=== PATIENT | female | born 1935 | race Caucasian/White ===

== ENCOUNTER 2020-04-06 10:02 | Inpatient (IN) | payer MEDICARE, BC ==
[2020-04-06 11:15] LABS: #Lymphocytes 0.7 thou/uL (1.20-3.40); #Monocytes 0.5 thou/uL (0.11-0.59); #Neutrophils 6.7 thou/uL (1.40-6.50); %Basophils 0.1 % (0.0-1.0); %Eosinophils 0.1 % (0.0-10.0); %Lymphocytes 8.7 % (21.0-51.0); %Monocytes 6.7 % (0.0-10.0); %Neutrophils 84.4 % (42.0-75.0); Hemoglobin 13.3 g/dL (12.0-16.0); Mean Corpuscular HGB CONC 32.1 g/dL (32.0-36.0); Mean Corpuscular Hemoglobin 30.6 pg (27.0-31.0); Mean Corpuscular Volume 95.4 fL (78.0-98.0); Mean Platelet Volume 8.6 fL (7.4-10.4); Platelet Count 175 thou/uL (130-400); RBC Distribution Width 11.8 % (11.5-14.5); Red Blood Cell (RBC) Count 4.36 mill/uL (4.20-5.40)
--- NOTE | 2020-04-06 11:20 | RAD ---
Chest AP view INDICATION: Covid positive diagnosis COMPARISON: None FINDINGS: Lungs: There are patchy interstitial airspace opacities within the right lower lobe which may be rel ated to subsegmental volume loss as the patient did take a poor inspiration Cardiac silhouette: Accentuated by the low inspiration. Pulmonary vasculature: Normal Pleural spaces: No pleural effusion or pneumothorax is demonstrated. Upper abdomen: No abnormality seen. Osseous structures: No acute osseous abnormality. Additional findings: None. IMPRESSION: Suspected subsegmental volume loss within the right lower lobe due to poor inspiration. Recommend a r epeat chest radiograph with improved inspiration for further evaluation.
[2020-04-06 11:25] LABS: ALT (SGPT) 23 U/L (8-55); AST (SGOT) 50 U/L (5-34); Albumin 3.8 g/dL (3.4-4.8); Alkaline Phosphatase 66 U/L (40-110); Anion Gap 19 mmol/L (10-20); BUN (Urea Nitrogen) 34 mg/dL (9.8-20.1); Bilirubin, Total 0.7 mg/dL (0.2-1.2); Calc. Creatinine Clearance 0 mL/min (70-130); Calcium 8.5 mg/dL (7.8-10.44); Carbon Dioxide 23 mmol/L (23-31); Chloride 107 mmol/L (98-107); Globulin 2.9 g/dL (2.4-3.5); Glucose 135 mg/dL (83-110); Protein, Total 6.7 g/dL (6.0-8.3); Sodium 145 mmol/L (136-145)
[2020-04-06 11:52] LABS: Bilirubin Small (Negative); Blood, Urine Trace (Negative); Clarity Cloudy (Clear); Glucose, Urine (Dipstick) Negative (Negative); Ketone, Urine Negative (Negative); Leukocyte Moderate (Negative); Nitrite Negative (Negative); Protein, Urine (Dipstick) 30 mg/dL (Neg-Trace)
[2020-04-06 12:09] LABS: Specific Gravity, Urine 1.026 (1.002-1.036)
[2020-04-06 12:10] LABS: Bacteria/HPF 1+ HPF (None Seen); Mucous/LPF 1+ LPF (<2+); RBC/HPF 0-3 HPF (0-3); WBC/HPF Greater Than 50 HPF (0-3)
[2020-04-06] MEDS ORDERED: cefTRIAXone\\ROCEPHIN 2 GM VIAL ONE (12:34)
[2020-04-06] MEDS ORDERED: Ondansetron PF 4 MG/2 ML Vial IVP PRN (13:15)
--- NOTE | 2020-04-06 14:25 | HP ---
PRIMARY CARE PHYSICIAN: Dr. Mónica Martinez at [facility]. CHIEF COMPLAINT: Not responsive. HISTORY OF PRESENT ILLNESS: This is an 84-year-old female with history of dementia in a Memory Care Unit, who tested positive for COVID at that facility 5 days ago, who presents to the emergency room here due to lack of responsiveness. History is primarily obtained from the patient's son. He reports visiting her a week ago and states that she stayed in bed the entire time which was unusual. The following day, he was told she tested positive and he was unable to go into the room. He has visited her daily looking through the window and could see that she is becoming more frail, not eating, shaking. Yesterday, the nursing staff pointed out that her mouth was red and that she was dehydrated. Because of the worsening, she was brought to the emergency room. No other history is obtainable, the patient does mumble some words, however, they are not comprehensible. In the emergency room, the patient diagnosed with UTI and given 2 g of Rocephin and 1 L of normal saline. She was placed on precautions because of the reported positive COVID test. ALLERGIES TO MEDICINE: Azithromycin and erythromycin. CURRENT MEDICATIONS: Reconciled with the list by the nursing facility. 1. Famotidine 20 mg b.i.d. p.r.n. 2. Delsym 10 mL b.i.d. 3. Donepezil 5 mg at bedtime. 4. Escitalopram 20 mg daily. 5. Fluocinolone 0.05% every 6 hours as needed. 6. Lamisil topical in the evening to her toenails. 7. MiraLAX 17 g daily as needed. 8. Tylenol 650 mg every 6 hours as needed. PAST MEDICAL HISTORY: Per the patient's son, dementia, diagnosed about a year ago. PAST SURGICAL HISTORY: He denies anything recent. SOCIAL HISTORY: The patient lived with him up until a year ago when she started having signs of dementia, which he reports has progressed. She lives in a Memory Care Facility and was transitioned to an isolation care area within that facility at [place]. The patient's son is her surrogate decision maker. In discussion with the son and his , they state that she does have a living will and she would not want to be kept alive if there was no chance for quality of life. However, there is no mention of immediate actions. We will have the patient as a full code, and with any decision making, it will need to be discussed with the son and [id number] to determine if it is fitting with the patient's wishes. FAMILY HISTORY: Significant for one of the patient's sons who of muscular dystrophy at age 45. REVIEW OF SYSTEMS: Not obtainable. PHYSICAL EXAMINATION: VITAL SIGNS: Blood pressure 110/69, pulse 77, respirations 24, sat 96% on room air, temperature 99.7. GENERAL: The patient will open her eyes. She will mumble. She is not in apparent distress. HEENT: Her pupils are equal and round. No scleral icterus. Oral mucosa is dry with yellow material around her teeth and on her tongue. NECK: Supple, nontender. LYMPHATICS: No palpable cervical or supraclavicular lymphadenopathy. LUNGS: Clear to auscultation. No audible wheezing, rhonchi, or rales. HEART: Normal S1, S2. No significant murmurs, although difficult to determine given the COVID unit negative pressure system in the room. ABDOMEN: Soft. Present bowel sounds. Nontender, nondistended. EXTREMITIES: No pitting edema, clubbing, or cyanosis. NEUROLOGIC: Not following commands. Unable to adequately assess. PSYCH: Unable to adequately assess. SKIN: She has some flaking on her lower extremities bilateral. No erythema. VASCULAR: She has 2+ radial pulses. LABORATORY AND DIAGNOSTIC DATA: Chest x-ray is personally reviewed, which shows a suspected subsegmental volume loss within the right lower lobe due to poor inspiration, recommends repeating the chest x-ray when the patient can take a deeper breath. CBC; 8, 13.3, 41.5, 175. Chemistry; 145, 4.0, 107, 23, 34, 1.03, 135. T-bilirubin 0.7, AST 50, ALT 23, alkaline phosphatase 66, total protein 6.7, albumin 3.8. Lactic acid 1.3. Troponin 0.016. Urine; present protein, moderate leukocyte esterase, greater than 50 white blood cells, 4 to 6 squamous cells, and 4 to 6 transitional epithelial cells. IMPRESSION: 1. Reported COVID positive test a week ago, no documentation available to confirm this. 2. Encephalopathy in the context of urinary tract infection in a patient with baseline dementia. 3. Dehydration, fairly significant. 4. Thrush. 5. Dementia. PLAN: 1. Admission to the hospital. 2. IV fluid hydration, continuing the Rocephin and following the urine culture as well as blood cultures. 3. Monitoring her urine output. 4. Repeating the COVID test as I do not see documentation and want to verify that this is accurate. We will have the patient on precautions until then. 5. Given the change in mental status, although it may solely be due to either COVID or urinary tract infection, we will order a CT scan of the brain to ensure that there is no other process going. 6. We will use nystatin oral solution to help with the patient's mouth. She will be n.p.o. until she is considered safe to swallow via bedside swallow. 7. No indication for medications for COVID given that the patient is on room air without any significant sign of pneumonia on chest x-ray. 8. DVT prophylaxis with renally dosed Lovenox. 9. GI prophylaxis. We will use IV famotidine for now until the patient is able to take p.o. 10. Code status is full. However, the caveat is there are things that the patient may not want and recommend any procedures be discussed with the patient's son and [id number]. However, in the event of an emergency, they do consent to treatment. 11. Discussed that this situation is very difficult for the patient with the underlying dementia, the hope is with treatment that this will improve and the patient will get back to her baseline. We also discussed the possibility that this may stay the same or worsen. There were no questions or further needs at end of conversation with the patient's son and [id number]. They demonstrate understanding of the potentially serious nature of the current illness as well as the planned treatment. Job ID: [id number] [facility]
--- NOTE | 2020-04-06 14:51 | CT ---
HEAD CT WITHOUT CONTRAST: History: Mental status change. FINDINGS: No parenchymal hemorrhage. No extraaxial hematoma. No midline shift. Basilar cisterns are patent. Brain volume is age appropriate. Cortical kaplan white matter differentiation is preserved. There are chronic small vessel ischemic changes of the white matter. No hydrocephalus. 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 Intact calvarium. Adequate aeration of the sinuses and mastoid air cells. IMPRESSION: No acute intracranial process. POS: PPP
--- NOTE | 2020-04-06 15:18 | PDOC.BPN ---
- Brief Progress Note Encounter Date: 04/06/20 Encounter Time: 15:17 Rupa/RN talked with the family since I spoke with them - they called back and stated pt is a DNAR. They do not desire resuscitation if there is a decline in condition. I updated this in the system.
[2020-04-06] MEDS ORDERED: Haloperidol Lactate 5 MG/ML VIAL ONE (15:58)
[2020-04-06] MEDS ORDERED: Acetaminophen 650 MG Suppository ONE (16:00)
[2020-04-06 17:56] VITALS: BMI 22.5
[2020-04-06] MEDS: Sodium Chloride 0.9% 1,000 ML IV SCH (18:17)
[2020-04-06] MEDS: Nystatin 500,000 UNITS/5 ML UDCUP SSP SCH ×2 (18:17→22:16)
[2020-04-06] MEDS ORDERED: Famotidine/PF 20 mg/2ml Vial SLOW IVP SCH (21:00)
[2020-04-06 23:17] LABS: SARS-CoV-2 MS2 Positive; SARS-CoV-2 N Gene Positive; SARS-CoV-2 S Gene Positive; SARS-CoV-2 by NAA DETECTED (NotDetected); SARS-CoV-2 orf1ab Positive
[2020-04-07] MEDS: Sodium Chloride 0.9% 1,000 ML IV SCH ×2 (01:33→08:31)
[2020-04-07 07:02] LABS: #Lymphocytes 0.6 thou/uL (1.20-3.40); #Monocytes 0.4 thou/uL (0.11-0.59); #Neutrophils 8.2 thou/uL (1.40-6.50); %Basophils 0.1 % (0.0-1.0); %Eosinophils 0.1 % (0.0-10.0); %Lymphocytes 6.3 % (21.0-51.0); %Monocytes 4.3 % (0.0-10.0); %Neutrophils 89.2 % (42.0-75.0); Hemoglobin 12.2 g/dL (12.0-16.0); Mean Corpuscular Volume 96.7 fL (78.0-98.0); Mean Platelet Volume 8.4 fL (7.4-10.4); Platelet Count 170 thou/uL (130-400); RBC Distribution Width 11.8 % (11.5-14.5); Red Blood Cell (RBC) Count 3.94 mill/uL (4.20-5.40); White Blood Cell (WBC) Count 9.2 thou/uL (4.8-10.8)
[2020-04-07 07:20] LABS: Anion Gap 14 mmol/L (10-20); BUN (Urea Nitrogen) 27 mg/dL (9.8-20.1); Calc. Creatinine Clearance 47 mL/min (70-130); Calcium 8.4 mg/dL (7.8-10.44); Carbon Dioxide 23 mmol/L (23-31); Chloride 113 mmol/L (98-107); Glucose 102 mg/dL (83-110); Potassium 3.8 mmol/L (3.5-5.1); Sodium 146 mmol/L (136-145)
[2020-04-07] MEDS: Nystatin 500,000 UNITS/5 ML UDCUP SSP SCH (08:28)
[2020-04-07] MEDS: Enoxaparin Sodium 30 MG/0.3 ML SYRINGE SC SCH (08:31)
--- NOTE | 2020-04-07 09:11 | PDOC.HOSPP ---
- Subjective Encounter Date: 04/07/20 (f/u encephalopathy) Encounter Time: 09:09 Subjective: Pt more alert this morning - recognizes her son's voice on the phone, able to answer a few simple question. Rn reports she is swallowing without difficulty. Voiding. No overnight events. - Objective Vital Signs & Weight: Vital Signs (12 hours) Temp Pulse Resp BP Pulse Ox 04/07/20 07:24 96 04/07/20 07:23 98.9 F 87 18 134/63 96 04/07/20 04:00 99.8 F H 84 18 112/67 94 L 04/07/20 01:00 98.5 F 80 18 133/79 96 Weight Weight 131 lb 4.8 oz Result Diagrams: 04/07/20 06:52 04/07/20 06:52 Additional Labs: Accuchecks 04/07/20 04/06/20 04/06/20 06:04 20:44 18:23 POC Glucose 86 122 H 112 H Hospitalist ROS - Medication Medications: Active Medications Generic Name Dose Route Start Last Admin Trade Name Freq PRN Reason Stop Dose Admin Enoxaparin Sodium 30 mg 04/07/20 09:00 04/07/20 08:31 Enoxaparin Sodium 30 Mg/0.3 Ml Syringe SC 30 mg 0900 KENTON Administration Famotidine 20 mg 04/06/20 21:00 04/06/20 22:16 Famotidine/Pf 20 Mg/2ml Vial SLOW IVP 20 mg HS KENTON Administration Nystatin 500,000 units 04/06/20 17:00 04/07/20 08:28 Nystatin 500,000 Units/5 Ml Udcup SSP 500,000 units QID K[place]ON Administration - Exam General Appearance: NAD Heart: RRR, no murmur Respiratory: CTAB, no wheezes, no rales, no ronchi Gastrointestinal: soft, non-tender, non-distended, normal bowel sounds Extremities: no cyanosis, no clubbing, no edema Psychiatric - other findings: says hello, more alert today. Hosp A/P (1) UTI (urinary tract infection) Status: Acute Qualifiers: Urinary tract infection type: acute cystitis Hematuria presence: without hematuria Qualified Code(s): N30.00 - Acute cystitis without hematuria (2) Encephalopathy Code(s): G93.40 - ENCEPHALOPATHY, UNSPECIFIED Status: Acute (3) Dementia Code(s): F03.90 - UNSPECIFIED DEMENTIA WITHOUT BEHAVIORAL DISTURBANCE Status: Chronic Qualifiers: Dementia type: unspecified type (4) COVID-19 Code(s): U07.1 - COVID-19 Status: Acute - Plan Pt overall improved in terms of mentation: 1. UTI - continue Rocephin and follow cultures 2. Encephalopathy - c/w toxic from UTI - treat infection - continue to re-orient - resume home meds - advance diet to regular - I ordered chopped for easier eating 3. Dementia - resume home med 4. COVID - no sx, no indication for meds - monitor 5. Mouth sores - nystatin swish and swallow pt/ot dvt prophy - lovenox gi prophy - not indicated code status DNAR Reviewed plan of care with patient's son who was on the phone while I was in the room. No questions or further needs at end of eval.
[2020-04-07] MEDS ORDERED: Polyethylene Glycol 3350 17 GM Packet PO PRN (09:51)
[2020-04-07] MEDS: Nystatin 500,000 UNITS/5 ML UDCUP SSW SCH ×4 (10:14→20:52)
[2020-04-07] MEDS: Dextrose 5 %-0.45 % NaCl 1,000 ML IV SCH (10:30)
[2020-04-07] MEDS: cefTRIAXone\\ROCEPHIN 1 GM in Sodium Chloride 0.9% 100 ML IVPB SCH (12:08)
[2020-04-07] MEDS ORDERED: FLU VACC QS2020-21(65YR UP)/PF 240 MCG/0.7 ML SYRINGE IM ONE (18:15)
[2020-04-07] MEDS: Famotidine 20 MG TAB PO SCH (20:52)
[2020-04-07] MEDS: Donepezil HCl 5 MG TAB PO SCH (20:52)
--- NOTE | 2020-04-07 23:50 | PDOC.EVN ---
Event Note - Event Note Event Note: Notified by RN, patient restless and attempting to get out of bed. Requesting restraints. Patient admitted with UTI and receiving antibiotics. Bladder scan ordered. Patient with >999mLs. [place] catheter placed given retention.
[2020-04-08 07:46] LABS: #Lymphocytes 0.9 thou/uL (1.20-3.40); #Monocytes 0.4 thou/uL (0.11-0.59); #Neutrophils 4.6 thou/uL (1.40-6.50); %Eosinophils 0.1 % (0.0-10.0); %Lymphocytes 15.2 % (21.0-51.0); %Monocytes 5.9 % (0.0-10.0); %Neutrophils 78.8 % (42.0-75.0); Hemoglobin 11.7 g/dL (12.0-16.0); Mean Corpuscular HGB CONC 33.9 g/dL (32.0-36.0); Mean Corpuscular Hemoglobin 32.6 pg (27.0-31.0); Mean Corpuscular Volume 96.3 fL (78.0-98.0); Mean Platelet Volume 8.9 fL (7.4-10.4); Platelet Count 147 thou/uL (130-400); RBC Distribution Width 11.7 % (11.5-14.5); White Blood Cell (WBC) Count 5.9 thou/uL (4.8-10.8)
[2020-04-08 07:53] LABS: Anion Gap 12 mmol/L (10-20); BUN (Urea Nitrogen) 20 mg/dL (9.8-20.1); Calc. Creatinine Clearance 51 mL/min (70-130); Calcium 8.2 mg/dL (7.8-10.44); Carbon Dioxide 22 mmol/L (23-31); Chloride 113 mmol/L (98-107); Glucose 102 mg/dL (83-110); Sodium 144 mmol/L (136-145)
[2020-04-08] MEDS ORDERED: Potassium Chloride 40 MEQ in Sodium Chloride 0.9% 250 ML 250 ML IVPB SCH (09:45)
[2020-04-08] MEDS: Dextrose 5 %-0.45 % NaCl 1,000 ML IV SCH (09:52)
[2020-04-08] MEDS: Escitalopram Oxalate 20 mg Tablet PO SCH (09:52)
[2020-04-08] MEDS: Nystatin 500,000 UNITS/5 ML UDCUP SSW SCH ×4 (09:52→20:12)
[2020-04-08] MEDS: Famotidine 20 MG TAB PO SCH ×2 (09:52→20:06)
[2020-04-08] MEDS: Azithromycin 500 MG in Sodium Chloride 0.9% 250 ML 250 ML IVPB SCH (09:52)
[2020-04-08] MEDS: Enoxaparin Sodium 30 MG/0.3 ML SYRINGE SC SCH (09:54)
[2020-04-08] MEDS ORDERED: Cholecalciferol 1,000 UNITS (25 MCG) TAB PO SCH (11:00)
[2020-04-08] MEDS ORDERED: Dexamethasone 4 mg/ml Vial SLOW IVP SCH (11:00)
[2020-04-08] MEDS ORDERED: Ascorbic Acid 500 mg Chewable Tablet PO SCH (11:00)
--- NOTE | 2020-04-08 13:58 | PDOC.HOSPP ---
- Subjective Encounter Date: 04/08/20 Encounter Time: 10:20 Subjective: Events noted. Patient still confused this morning talk to the RN. We can remove her soft restraints and if needed we can put it back. Still hypoxia but seems to be better 94% in the room air had a low-grade temp last evening - Objective Vital Signs & Weight: Vital Signs (12 hours) Temp Pulse Resp BP Pulse Ox 04/08/20 08:28 97.7 F 54 L 18 122/73 94 L 04/08/20 08:00 94 L Weight Admit Weight 131 lb 4.8 oz Weight 131 lb 4.8 oz I&O: 04/07/20 04/08/20 04/09/20 06:59 06:59 06:59 Intake Total 480 Balance 480 Result Diagrams: 04/08/20 06:57 04/08/20 06:57 Additional Labs: Accuchecks 04/08/20 04/07/20 04/07/20 05:34 20:34 17:04 POC Glucose 96 107 H 88 Hospitalist ROS - Medication Medications: Active Medications Generic Name Dose Route Start Last Admin Trade Name Freq PRN Reason Stop Dose Admin Donepezil HCl 5 mg 04/07/20 21:00 04/07/20 20:52 Donepezil Hcl 5 Mg Tab PO 5 mg HS K[place]ON Administration Enoxaparin Sodium 30 mg 04/07/20 09:00 04/08/20 09:54 Enoxaparin Sodium 30 Mg/0.3 Ml Syringe SC 30 mg 0900 K[place]ON Administration Escitalopram Oxalate 20 mg 04/08/20 09:00 04/08/20 09:52 Escitalopram Oxalate 20 Mg Tablet PO 20 mg DAILY [place] Administration Famotidine 20 mg 04/07/20 21:00 04/08/20 09:52 Famotidine 20 Mg Tab PO 20 mg BID K[place] Administration Ceftriaxone Sodium 1 gm/ 100 mls @ 200 mls/hr 04/07/20 13:00 04/07/20 12:08 Sodium Chloride IVPB 100 mls Q24HR K[place] Administration Dextrose/Sodium Chloride 1,000 mls @ 50 mls/hr 04/07/20 09:15 04/08/20 09:52 D5 1/2 Ns IV 1,000 mls .Q20H [place] Administration Azithromycin 500 mg/ Sodium 250 mls @ 250 mls/hr 04/08/20 10:00 04/08/20 09:52 Chloride IVPB 250 mls 1000 [place] Administration Nystatin 500,000 units 04/07/20 09:00 04/08/20 13:18 Nystatin 500,000 Units/5 Ml Udcup SSW 500,000 units QID [place] Administration - Exam General Appearance: NAD, awake alert Eye: PERRL ENT: normocephalic atraumatic Neck: supple Heart: RRR, normal peripheral pulses Respiratory: CTAB, normal chest expansion Gastrointestinal: soft, normal bowel sounds Neurological: cranial nerve grossly intact, no focal deficits Psychiatric: normal affect, normal behavior, A&O x 3 Hosp A/P - Plan UTI (urinary tract infection) -On ceftriaxone E. coli UTI - sensitive for the most antibiotics except Bactrim and Unasyn (2) Encephalopathy Code(s): G93.40 - ENCEPHALOPATHY, UNSPECIFIED Status: Acute (3) Dementia Code(s): F03.90 - UNSPECIFIED DEMENTIA WITHOUT BEHAVIORAL DISTURBANCE Status: Chronic Qualifiers: Dementia type: unspecified type (4) COVID-19 Code(s): U07.1 - COVID-19 Status: Acute 4. COVID - She is hypoxic in room air -Decadron may worsen her metabolic encephalopathy however with hypoxia will treat her empirically 5. Mouth sores - nystatin swish and swallow VIBHA CAMPBELL
[2020-04-08] MEDS: cefTRIAXone\\ROCEPHIN 1 GM in Sodium Chloride 0.9% 100 ML IVPB SCH (16:48)
[2020-04-08] MEDS: Donepezil HCl 5 MG TAB PO SCH (20:06)
[2020-04-08] MEDS: Acetaminophen 650 MG Suppository PR PRN (22:00)
[2020-04-09] MEDS: Dextrose 5 %-0.45 % NaCl 1,000 ML IV SCH ×2 (01:02→19:00)
[2020-04-09 08:48] LABS: #Lymphocytes 0.6 thou/uL (1.20-3.40); #Monocytes 0.4 thou/uL (0.11-0.59); #Neutrophils 3.3 thou/uL (1.40-6.50); %Basophils 0.2 % (0.0-1.0); %Eosinophils 0.1 % (0.0-10.0); %Neutrophils 77.8 % (42.0-75.0); Hemoglobin 12.3 g/dL (12.0-16.0); Mean Corpuscular HGB CONC 31.3 g/dL (32.0-36.0); Mean Corpuscular Hemoglobin 29.9 pg (27.0-31.0); Mean Corpuscular Volume 95.4 fL (78.0-98.0); Mean Platelet Volume 9.8 fL (7.4-10.4); Platelet Count 168 thou/uL (130-400); RBC Distribution Width 11.8 % (11.5-14.5); Red Blood Cell (RBC) Count 4.11 mill/uL (4.20-5.40); White Blood Cell (WBC) Count 4.2 thou/uL (4.8-10.8)
[2020-04-09 08:58] LABS: Anion Gap 17 mmol/L (10-20); BUN (Urea Nitrogen) 16 mg/dL (9.8-20.1); Calc. Creatinine Clearance 56 mL/min (70-130); Calcium 8.5 mg/dL (7.8-10.44); Carbon Dioxide 21 mmol/L (23-31); Chloride 112 mmol/L (98-107); Glucose 135 mg/dL (83-110); Potassium 4.8 mmol/L (3.5-5.1); Sodium 145 mmol/L (136-145)
[2020-04-09] MEDS: Famotidine 20 MG TAB PO SCH ×2 (09:17→21:03)
[2020-04-09] MEDS: Ascorbic Acid 500 mg Chewable Tablet PO SCH (09:17)
[2020-04-09] MEDS: Escitalopram Oxalate 20 mg Tablet PO SCH (09:18)
[2020-04-09] MEDS: Zinc Sulfate 220 MG CAP PO SCH (09:18)
[2020-04-09] MEDS: Cholecalciferol 1,000 UNITS (25 MCG) TAB PO SCH (09:18)
[2020-04-09] MEDS: Dexamethasone 4 mg/ml Vial SLOW IVP SCH (09:18)
[2020-04-09] MEDS: Enoxaparin Sodium 30 MG/0.3 ML SYRINGE SC SCH (09:18)
[2020-04-09] MEDS: Nystatin 500,000 UNITS/5 ML UDCUP SSW SCH ×4 (09:19→21:03)
[2020-04-09] MEDS: Azithromycin 500 MG in Sodium Chloride 0.9% 250 ML 250 ML IVPB SCH (09:20)
[2020-04-09] MEDS ORDERED: hydrALAZINE 20 MG/ML VIAL SLOW IVP PRN (09:45)
[2020-04-09] MEDS: Lorazepam 1 MG TAB PO PRN ×2 (12:10→21:04)
[2020-04-09] MEDS: cefTRIAXone\\ROCEPHIN 1 GM in Sodium Chloride 0.9% 100 ML IVPB SCH (12:10)
--- NOTE | 2020-04-09 12:34 | PDOC.HOSPP ---
- Subjective Encounter Date: 04/09/20 Encounter Time: 10:45 Subjective: Patient looks stable but she is very confused. May need intermittent sedation so that she does not harm herself. She is on soft restraints. - Objective Vital Signs & Weight: Vital Signs (12 hours) Temp Pulse Resp BP Pulse Ox 04/09/20 12:00 98 04/09/20 08:00 97.6 F 64 20 161/84 H 94 L 04/09/20 04:00 97.9 F 57 L 16 146/71 H 93 L Weight Admit Weight 131 lb 4.8 oz Weight 131 lb 4.8 oz I&O: 04/08/20 04/09/20 04/10/20 06:59 06:59 06:59 Intake Total 1880 200 Output Total 1300 Balance 580 200 Result Diagrams: 04/09/20 07:41 04/09/20 07:41 Additional Labs: Accuchecks 04/09/20 04/09/20 04/08/20 11:49 03:59 19:49 POC Glucose 127 H 146 H 160 H 04/08/20 16:33 POC Glucose 107 H Hospitalist ROS - Medication Medications: Active Medications Generic Name Dose Route Start Last Admin Trade Name Freq PRN Reason Stop Dose Admin Acetaminophen 650 mg 04/06/20 13:15 04/08/20 22:00 Acetaminophen 650 Mg Suppository MT 650 mg Q4H PRN Administration Headache/Fever/Mild Pain (1-3) Ascorbic Acid 1,000 mg 04/09/20 09:00 04/09/20 09:17 Ascorbic Acid 500 Mg Chewable Tablet PO 1,000 mg DAILY K[place]ON Administration Cholecalciferol 2,000 units 04/09/20 09:00 04/09/20 09:18 Cholecalciferol 1,000 Units (25 Mcg) Tab PO 2,000 units DAILY K[place] Administration Dexamethasone 6 mg 04/09/20 09:00 04/09/20 09:18 Dexamethasone 4 Mg/Ml Vial SLOW IVP 6 mg DAILY [place] Administration Donepezil HCl 5 mg 04/07/20 21:00 04/08/20 20:06 Donepezil Hcl 5 Mg Tab PO 5 mg HS K[place]ON Administration Enoxaparin Sodium 30 mg 04/07/20 09:00 04/09/20 09:18 Enoxaparin Sodium 30 Mg/0.3 Ml Syringe SC 30 mg 0900 K[place]ON Administration Escitalopram Oxalate 20 mg 04/08/20 09:00 04/09/20 09:18 Escitalopram Oxalate 20 Mg Tablet PO 20 mg DAILY [place] Administration Famotidine 20 mg 04/07/20 21:00 04/09/20 09:17 Famotidine 20 Mg Tab PO 20 mg BID [place] Administration Ceftriaxone Sodium 1 gm/ 100 mls @ 200 mls/hr 04/07/20 13:00 04/09/20 12:10 Sodium Chloride IVPB 100 mls Q24HR [place] Administration Dextrose/Sodium Chloride 1,000 mls @ 50 mls/hr 04/07/20 09:15 04/09/20 01:02 D5 1/2 Ns IV Not Given .Q20H K[place]ON Azithromycin 500 mg/ Sodium 250 mls @ 250 mls/hr 04/08/20 10:00 04/09/20 09:20 Chloride IVPB 250 mls 1000 [place] Administration Lorazepam 1 mg 04/09/20 11:49 04/09/20 12:10 Lorazepam 1 Mg Tab PO 1 mg Q8H PRN Administration Agitation Nystatin 500,000 units 04/07/20 09:00 04/09/20 09:19 Nystatin 500,000 Units/5 Ml Udcup SSW 500,000 units QID [place] Administration Zinc Sulfate 220 mg 04/09/20 09:00 04/09/20 09:18 Zinc Sulfate 220 Mg Cap PO 220 mg DAILY K[place]ON Administration - Exam General Appearance: awake alert Eye: PERRL ENT: normocephalic atraumatic Neck: supple Heart: RRR Respiratory: CTAB, normal chest expansion Gastrointestinal: soft, normal bowel sounds Extremities: 1+ LE edema Neurological: cranial nerve grossly intact, no focal deficits Psychiatric: oriented to person Hosp A/P - Plan UTI (urinary tract infection) -On ceftriaxone E. coli UTI - sensitive for the most antibiotics except Bactrim and Unasyn (2) Encephalopathy Code(s): G93.40 - ENCEPHALOPATHY, UNSPECIFIED Status: Acute (3) Dementia Code(s): F03.90 - UNSPECIFIED DEMENTIA WITHOUT BEHAVIORAL DISTURBANCE Status: Chronic Qualifiers: Dementia type: unspecified type (4) COVID-19 Code(s): U07.1 - COVID-19 Status: Acute 4. COVID - She is hypoxic in room air -Decadron may worsen her metabolic encephalopathy however with hypoxia will treat her empirically 5. Mouth sores - nystatin swish and swallow DN AR Hopefully her mentation will be cleared back to baseline of alert oriented. Then will consult physical therapy.
[2020-04-09] MEDS: Donepezil HCl 5 MG TAB PO SCH (21:03)
[2020-04-10] MEDS: Lorazepam 1 MG TAB PO PRN ×2 (06:02→19:50)
[2020-04-10] MEDS ORDERED: cloNIDine 0.2mg/24 Hour PATCH TD SCH (09:00)
[2020-04-10] MEDS: Enoxaparin Sodium 30 MG/0.3 ML SYRINGE SC SCH ×2 (09:24→19:50)
[2020-04-10] MEDS ORDERED: Metoprolol Tartrate 5 MG/5 ML VIAL IVP PRN (09:29)
[2020-04-10] MEDS: Zinc Sulfate 220 MG CAP PO SCH ×2 (09:40→11:09)
[2020-04-10] MEDS: Cholecalciferol 1,000 UNITS (25 MCG) TAB PO SCH ×2 (09:40→11:09)
[2020-04-10] MEDS: Escitalopram Oxalate 20 mg Tablet PO SCH ×2 (09:40→11:09)
[2020-04-10] MEDS: Nystatin 500,000 UNITS/5 ML UDCUP SSW SCH ×4 (09:40→17:09)
[2020-04-10] MEDS: Ascorbic Acid 500 mg Chewable Tablet PO SCH ×2 (09:40→11:09)
[2020-04-10] MEDS: Azithromycin 500 MG in Sodium Chloride 0.9% 250 ML 250 ML IVPB SCH (09:41)
[2020-04-10] MEDS: Dexamethasone 4 mg/ml Vial SLOW IVP SCH ×2 (09:41→11:09)
[2020-04-10] MEDS: Famotidine 20 MG TAB PO SCH ×2 (11:08→19:50)
[2020-04-10] MEDS ORDERED: Iopamidol-370 76% 500 ML 1 ML ONE (11:09)
--- NOTE | 2020-04-10 13:23 | PDOC.HOSPP ---
- Subjective Encounter Date: 04/10/20 Encounter Time: 10:50 Subjective: Patient is not having any p.o. intake. And she is not accepting any medications either. -Both her sugar and blood pressure is on the low end. Seems to be confusion with underlying history of dementia Probably worsened with the Covid pneumonia. - Objective Vital Signs & Weight: Vital Signs (12 hours) Temp Pulse Resp BP Pulse Ox 04/10/20 12:30 98.0 F 81 20 165/90 H 97 04/10/20 09:15 143/94 H 04/10/20 08:00 97.9 F 106 H 20 173/92 H 93 L Weight Admit Weight 131 lb 4.8 oz Weight 131 lb 4.8 oz I&O: 04/09/20 04/10/20 04/11/20 06:59 06:59 06:59 Intake Total 1880 1350 Output Total 1300 1550 Balance 580 -200 Result Diagrams: 04/09/20 07:41 04/09/20 07:41 Additional Labs: Accuchecks 04/10/20 04/09/20 04/09/20 06:04 20:06 15:53 POC Glucose 105 H 141 H 124 H Hospitalist ROS - Medication Medications: Active Medications Generic Name Dose Route Start Last Admin Trade Name Freq PRN Reason Stop Dose Admin Acetaminophen 650 mg 04/06/20 13:15 04/08/20 22:00 Acetaminophen 650 Mg Suppository [place] 650 mg Q4H PRN Administration Headache/Fever/Mild Pain (1-3) Ascorbic Acid 1,000 mg 04/09/20 09:00 04/10/20 11:09 Ascorbic Acid 500 Mg Chewable Tablet PO Not Given DAILY K[place]ON Cholecalciferol 2,000 units 04/09/20 09:00 04/10/20 11:09 Cholecalciferol 1,000 Units (25 Mcg) Tab PO Not Given DAILY K[place]ON Dexamethasone 6 mg 04/09/20 09:00 04/10/20 11:09 Dexamethasone 4 Mg/Ml Vial SLOW IVP Not Given DAILY K[place]ON Donepezil HCl 5 mg 04/07/20 21:00 04/09/20 21:03 Donepezil Hcl 5 Mg Tab PO 5 mg HS [place] Administration Escitalopram Oxalate 20 mg 04/08/20 09:00 04/10/20 11:09 Escitalopram Oxalate 20 Mg Tablet PO Not Given DAILY K[place] Famotidine 20 mg 04/07/20 21:00 04/10/20 11:08 Famotidine 20 Mg Tab PO Not Given BID K[place] Ceftriaxone Sodium 1 gm/ 100 mls @ 200 mls/hr 04/07/20 13:00 04/09/20 12:10 Sodium Chloride IVPB 100 mls Q24HR [place] Administration Dextrose/Sodium Chloride 1,000 mls @ 50 mls/hr 04/07/20 09:15 04/09/20 19:00 D5 1/2 Ns IV 1,000 mls .Q20H [place] Administration Azithromycin 500 mg/ Sodium 250 mls @ 250 mls/hr 04/08/20 10:00 04/10/20 09:41 Chloride IVPB 250 mls 1000 [place] Administration Lorazepam 1 mg 04/09/20 11:49 04/10/20 06:02 Lorazepam 1 Mg Tab PO 1 mg Q8H PRN Administration Agitation Nystatin 500,000 units 04/07/20 09:00 04/10/20 11:09 Nystatin 500,000 Units/5 Ml Udcup SSW Not Given QID [place] Polyethylene Glycol 17 gm 04/07/20 09:51 04/09/20 21:04 Polyethylene Glycol 3350 17 Gm Packet PO 17 gm DAILYPRN PRN Administration Constipation Zinc Sulfate 220 mg 04/09/20 09:00 04/10/20 11:09 Zinc Sulfate 220 Mg Cap PO Not Given DAILY K[place]ON - Exam General Appearance: ill appearing Eye: PERRL, anicteric sclera Neck: supple Heart: RRR Respiratory: CTAB, normal chest expansion Gastrointestinal: soft, normal bowel sounds Neurological: no focal deficits Musculoskeletal: generalized weakness Psychiatric: oriented to person Hosp A/P - Plan UTI (urinary tract infection) -On ceftriaxone E. coli UTI - sensitive for the most antibiotics except Bactrim and Unasyn (2) Encephalopathy Code(s): G93.40 - ENCEPHALOPATHY, UNSPECIFIED Status: Acute (3) Dementia Code(s): F03.90 - UNSPECIFIED DEMENTIA WITHOUT BEHAVIORAL DISTURBANCE Status: Chronic Qualifiers: Dementia type: unspecified type (4) COVID-19 Code(s): U07.1 - COVID-19 Status: Acute 4. COVID - She is hypoxic in room air -Decadron may worsen her metabolic encephalopathy however with hypoxia will treat her empirically 5. Mouth sores - nystatin swish and swallow DN AR Hopefully her mentation will be cleared back to baseline of alert oriented. Then will consult physical therapy. 31st Metabolic encephalopathy secondary to COVID-[address] [place] [address] underlying age-related dementia Accelerated hypertension -has not taking fever blood pressure medications -Clonidine dermal patch low p.o. intake, again likely due to Covid pneumonia and underlying dementia -Started on D5 half NS -If she continued to have not eating much then we need to find alternate options including peripheral parenteral nutrition
[2020-04-10] MEDS: cefTRIAXone\\ROCEPHIN 1 GM in Sodium Chloride 0.9% 100 ML IVPB SCH ×2 (15:09→16:53)
--- NOTE | 2020-04-10 16:01 | CT ---
EXAM: CT ANGIOGRAM CHEST WITH 3D RENDERIN04/10/20 HISTORY: Hypoxia, high white blood cell count, epigastric pain. FINDINGS: patchy bilateral interstitial, alveolar, and ground glass opacity changes noted more so in the right lung, evidence for bilateral COVID pneumonia. Small pleural effusion/pleural reaction changes. No per icardial effusion. Pleural based parenchymal changes posteriorly, evidence for subsegmental atelectas is. Exam is severally limited technically because of motion. No convincing evidence for acute pulmonary e mbolism, particularly in the proximal mid pulmonary arteries. The smaller more peripheral branches, p articularly in the lower lobe regions are less than optimally imaged. Small hiatal hernia. [address] low attenuation focus in the left kidney upper pole, nonspecific, possibly a cyst. No mediastinal mass or adenopathy. Possible small right lobe of thyroid nodule, 0.8 cm. IMPRESSION: 1. No convincing CT evidence for acute pulmonary embolism. 2. Patchy bilateral interstitial, alveolar, and ground glass opacity changes more marked in the right lung, evidence for COVID pneumonia. 3. Small bilateral pleural effusions and pleural based parenchymal changes probably related to s ubsegmental atelectasis. 4. Other findings as above. POS: RRE
[2020-04-10] MEDS ORDERED: cefTRIAXone\\ROCEPHIN 1 GM in Sodium Chloride 0.9% 100 ML IVPB SCH (16:45)
[2020-04-10] MEDS: Dextrose 5 %-0.45 % NaCl 1,000 ML IV SCH (17:45)
[2020-04-11] MEDS: Nystatin 500,000 UNITS/5 ML UDCUP SSW SCH ×5 (00:57→19:59)
[2020-04-11] MEDS: Donepezil HCl 5 MG TAB PO SCH ×2 (00:57→19:58)
[2020-04-11] MEDS: Famotidine 20 MG TAB PO SCH ×3 (00:57→19:58)
[2020-04-11] MEDS: Lorazepam 1 MG TAB PO PRN (03:50)
[2020-04-11] MEDS: Dexamethasone 4 mg/ml Vial SLOW IVP SCH (08:06)
[2020-04-11] MEDS: Enoxaparin Sodium 30 MG/0.3 ML SYRINGE SC SCH ×2 (08:06→19:58)
[2020-04-11] MEDS: Ascorbic Acid 500 mg Chewable Tablet PO SCH (09:00)
[2020-04-11] MEDS: Cholecalciferol 1,000 UNITS (25 MCG) TAB PO SCH (09:00)
[2020-04-11] MEDS: Zinc Sulfate 220 MG CAP PO SCH (09:01)
[2020-04-11] MEDS: Escitalopram Oxalate 20 mg Tablet PO SCH (09:01)
[2020-04-11] MEDS: Azithromycin 500 MG in Sodium Chloride 0.9% 250 ML 250 ML IVPB SCH (09:53)
[2020-04-11] MEDS: Lorazepam 2 MG/ML VIAL SLOW IVP PRN ×2 (12:29→20:12)
[2020-04-11] MEDS: Dextrose 5 %-0.45 % NaCl 1,000 ML IV SCH ×2 (12:57→19:59)
--- NOTE | 2020-04-11 13:47 | PDOC.HOSPP ---
- Subjective Encounter Date: 04/11/20 Encounter Time: 10:35 Subjective: Patient is quite confused able to say her name only. Her p.o. intake is quite less. She is tachycardic this morning and sats are 91% in the room air. It appears that she is not keeping her nasal cannula. - Objective Vital Signs & Weight: Vital Signs (12 hours) Temp Pulse Resp BP Pulse Ox 04/11/20 08:00 97.5 F L 113 H 22 H 159/84 H 91 L 04/11/20 05:00 98.4 F 91 20 146/76 H 96 Weight Admit Weight 131 lb 4.8 oz Weight 131 lb 4.8 oz I&O: 04/10/20 04/11/20 04/12/20 06:59 06:59 06:59 Intake Total 1350 650 Output Total 1550 550 Balance -200 100 Result Diagrams: 04/09/20 07:41 04/09/20 07:41 Additional Labs: Accuchecks 04/11/20 04/11/20 04/10/20 12:07 03:43 20:04 POC Glucose 128 H 109 H 130 H 04/10/20 16:02 POC Glucose 135 H Hospitalist ROS - Medication Medications: Active Medications Generic Name Dose Route Start Last Admin Trade Name Freq PRN Reason Stop Dose Admin Acetaminophen 650 mg 04/06/20 13:15 04/08/20 22:00 Acetaminophen 650 Mg Suppository CA 650 mg Q4H PRN Administration Headache/Fever/Mild Pain (1-3) Ascorbic Acid 1,000 mg 04/09/20 09:00 04/11/20 09:00 Ascorbic Acid 500 Mg Chewable Tablet PO Not Given DAILY [facility] Cholecalciferol 2,000 units 04/09/20 09:00 04/11/20 09:00 Cholecalciferol 1,000 Units (25 Mcg) Tab PO Not Given DAILY [facility] Clonidine 0.2 mg 04/10/20 09:00 04/10/20 15:17 Clonidine 0.2mg/24 Hour Patch TD 0.2 mg Q7D [facility] Administration Dexamethasone 6 mg 04/09/20 09:00 04/11/20 08:06 Dexamethasone 4 Mg/Ml Vial SLOW IVP 6 mg DAILY [facility] Administration Donepezil HCl 5 mg 04/07/20 21:00 04/11/20 00:57 Donepezil Hcl 5 Mg Tab PO Not Given HS [facility] Enoxaparin Sodium 30 mg 04/10/20 21:00 04/11/20 08:06 Enoxaparin Sodium 30 Mg/0.3 Ml Syringe SC 30 mg BID [facility] Administration Escitalopram Oxalate 20 mg 04/08/20 09:00 04/11/20 09:01 Escitalopram Oxalate 20 Mg Tablet PO Not Given DAILY [facility] Famotidine 20 mg 04/07/20 21:00 04/11/20 09:01 Famotidine 20 Mg Tab PO Not Given BID [facility] Dextrose/Sodium Chloride 1,000 mls @ 50 mls/hr 04/07/20 09:15 04/11/20 12:57 D5 1/2 Ns IV 1,000 mls .Q20H [facility] Administration Azithromycin 500 mg/ Sodium 250 mls @ 250 mls/hr 04/08/20 10:00 04/11/20 09:53 Chloride IVPB 250 mls 1000 [facility] Administration Lorazepam 1 mg 04/11/20 11:11 04/11/20 12:29 Lorazepam 2 Mg/Ml Vial SLOW IVP 1 mg Q8H PRN Administration AGITATION Nystatin 500,000 units 04/07/20 09:00 04/11/20 12:54 Nystatin 500,000 Units/5 Ml Udcup SSW Not Given QID [facility] Polyethylene Glycol 17 gm 04/07/20 09:51 04/09/20 21:04 Polyethylene Glycol 3350 17 Gm Packet PO 17 gm DAILYPRN PRN Administration Constipation Zinc Sulfate 220 mg 04/09/20 09:00 04/11/20 09:01 Zinc Sulfate 220 Mg Cap PO Not Given DAILY [facility] - Exam General - other findings: Disoriented. Eye: PERRL ENT: normocephalic atraumatic Neck: supple Heart: RRR, normal peripheral pulses Respiratory: CTAB, normal chest expansion Gastrointestinal: soft, normal bowel sounds Neurological: cranial nerve grossly intact, no focal deficits Psychiatric: oriented to person, somnolent, lethargic Hosp A/P - Plan UTI (urinary tract infection) -On ceftriaxone E. coli UTI - sensitive for the most antibiotics except Bactrim and Unasyn (2) Encephalopathy Code(s): G93.40 - ENCEPHALOPATHY, UNSPECIFIED Status: Acute (3) Dementia Code(s): F03.90 - UNSPECIFIED DEMENTIA WITHOUT BEHAVIORAL DISTURBANCE Status: Chronic Qualifiers: Dementia type: unspecified type (4) COVID-19 Code(s): U07.1 - COVID-19 Status: Acute 4. COVID - She is hypoxic in room air -Decadron may worsen her metabolic encephalopathy however with hypoxia will treat her empirically 5. Mouth sores - nystatin swish and swallow DN AR Hopefully her mentation will be cleared back to baseline of alert oriented. Then will consult physical therapy. 31 Met[facility] underlying age-related [facility] Accelerated hypertension -has not taking fever blood pressure medications -Clonidine dermal patch low p.o. intake, again likely due to Covid pneumonia and underlying dementia -Started on D5 half NS -If she continued to have not eating much then we need to find alternate options including peripheral parenteral nutrition 1st Her blood pressure is improved however her sats are low and that is probably because she is not keeping her oxygen by nasal cannula she is agitated and confused. We are switching Ativan to IV as needed. She is DN AR.
[2020-04-11] MEDS: cefTRIAXone\\ROCEPHIN 1 GM in Sodium Chloride 0.9% 100 ML IVPB SCH (15:12)
[2020-04-12] MEDS: Lorazepam 2 MG/ML VIAL SLOW IVP PRN ×2 (03:04→22:26)
[2020-04-12] MEDS: Dexamethasone 4 mg/ml Vial SLOW IVP SCH (09:44)
[2020-04-12] MEDS: Azithromycin 500 MG in Sodium Chloride 0.9% 250 ML 250 ML IVPB SCH (09:44)
[2020-04-12] MEDS: Enoxaparin Sodium 30 MG/0.3 ML SYRINGE SC SCH (09:45)
[2020-04-12] MEDS: Ascorbic Acid 500 mg Chewable Tablet PO SCH (10:37)
[2020-04-12] MEDS: Nystatin 500,000 UNITS/5 ML UDCUP SSW SCH ×4 (10:37→21:17)
[2020-04-12] MEDS: Famotidine 20 MG TAB PO SCH ×2 (10:37→20:55)
[2020-04-12] MEDS: Escitalopram Oxalate 20 mg Tablet PO SCH (10:37)
[2020-04-12] MEDS: Zinc Sulfate 220 MG CAP PO SCH (10:37)
[2020-04-12] MEDS: Cholecalciferol 1,000 UNITS (25 MCG) TAB PO SCH (10:37)
--- NOTE | 2020-04-12 14:56 | EKG ---
Test Reason : Blood Pressure : / mmHG Vent. Rate : 079 BPM Atrial Rate : 079 BPM P-R Int : 166 ms QRS Dur : 068 ms QT Int : 384 ms P-R-T Axes : 049 028 026 degrees QTc Int : 440 ms Normal sinus rhythm Low voltage QRS Borderline ECG Confirmed by NAKUL OSEI DO ([id number]), scientific editor HAI ORTA ([id number]) on 04/12/2020 2:56:23 PM Referred By: Confirmed By:NAKUL OSEI DO
[2020-04-12] MEDS: cefTRIAXone\\ROCEPHIN 1 GM in Sodium Chloride 0.9% 100 ML IVPB SCH (15:19)
--- NOTE | 2020-04-12 20:07 | PDOC.HOSPP ---
- Subjective Encounter Date: 04/12/20 Encounter Time: 12:30 non-verbal Subjective: Patient seen and examined for encephalopathy/COVID 19. Remains confused. No other overnight events. - Objective Vital Signs & Weight: Weight Admit Weight 131 lb 4.8 oz Weight 131 lb 4.8 oz I&O: 04/11/20 04/12/20 04/13/20 06:59 06:59 06:59 Intake Total 650 650 Output Total 550 350 Balance 100 300 Result Diagrams: 04/09/20 07:41 04/09/20 07:41 Additional Labs: Accuchecks 04/12/20 04/12/20 04/12/20 15:44 10:35 04:22 POC Glucose 120 H 92 115 H Microbiology - Entire Visit 04/06/20 11:06 Venous blood - Left Arm Blood Culture - Final NO GROWTH IN 5 DAYS 04/06/20 11:06 Venous blood - Right Hand Blood Culture - Final NO GROWTH IN 5 DAYS 04/06/20 11:25 Urine Straight Catheter Urine Culture - Final Escherichia coli Radiology Reviewed by me: Yes (CT angiogramPneumonia) Hospitalist ROS - Review of Systems ROS unobtainable: due to mental status - Medication Medications: Active Medications Generic Name Dose Route Start Last Admin Trade Name Freq PRN Reason Stop Dose Admin Acetaminophen 650 mg 04/06/20 13:15 04/08/20 22:00 Acetaminophen 650 Mg Suppository HI 650 mg Q4H PRN Administration Headache/Fever/Mild Pain (1-3) Ascorbic Acid 1,000 mg 04/09/20 09:00 04/12/20 10:37 Ascorbic Acid 500 Mg Chewable Tablet PO Not Given DAILY [facility] Cholecalciferol 2,000 units 04/09/20 09:00 04/12/20 10:37 Cholecalciferol 1,000 Units (25 Mcg) Tab PO Not Given DAILY [facility] Clonidine 0.2 mg 04/10/20 09:00 04/10/20 15:17 Clonidine 0.2mg/24 Hour Patch TD 0.2 mg Q7D [facility] Administration Dexamethasone 6 mg 04/09/20 09:00 04/12/20 09:44 Dexamethasone 4 Mg/Ml Vial SLOW IVP 6 mg DAILY [facility] Administration Donepezil HCl 5 mg 04/07/20 21:00 04/11/20 19:58 Donepezil Hcl 5 Mg Tab PO Not Given HS [facility] Enoxaparin Sodium 30 mg 04/10/20 21:00 04/12/20 09:45 Enoxaparin Sodium 30 Mg/0.3 Ml Syringe SC 30 mg BID [facility] Administration Escitalopram Oxalate 20 mg 04/08/20 09:00 04/12/20 10:37 Escitalopram Oxalate 20 Mg Tablet PO Not Given DAILY [facility] Famotidine 20 mg 04/07/20 21:00 04/12/20 10:37 Famotidine 20 Mg Tab PO Not Given BID [facility] Dextrose/Sodium Chloride 1,000 mls @ 50 mls/hr 04/07/20 09:15 04/11/20 19:59 D5 1/2 Ns IV 1,000 mls .Q20H [facility] Administration Azithromycin 500 mg/ Sodium 250 mls @ 250 mls/hr 04/08/20 10:00 04/12/20 09: 44 Chloride IVPB 250 mls 1000 [facility] Administration Ceftriaxone Sodium 1 gm/ 100 mls @ 200 mls/hr 04/11/20 16:00 04/12/20 15:19 Sodium Chloride IVPB 100 mls 1600 [facility] Administration Lorazepam 1 mg 04/11/20 11:11 04/12/20 03:04 Lorazepam 2 Mg/Ml Vial SLOW IVP 1 mg Q8H PRN Administration AGITATION Nystatin 500,000 units 04/07/20 09:00 04/12/20 16:51 Nystatin 500,000 Units/5 Ml Udcup SSW Not Given QID [facility] Polyethylene Glycol 17 gm 04/07/20 09:51 04/09/20 21:04 Polyethylene Glycol 3350 17 Gm Packet PO 17 gm DAILYPRN PRN Administration Constipation Zinc Sulfate 220 mg 04/09/20 09:00 04/12/20 10:37 Zinc Sulfate 220 Mg Cap PO Not Given DAILY [facility] - Exam General Appearance: ill appearing Neck: supple, no JVD Heart: RRR, no gallops Respiratory: no wheezes, rales, rhonchi Gastrointestinal: soft, no guarding, no rigidity Extremities: no cyanosis Neurological - other findings: Neuro/psychexam limited due to current mentation Hosp A/P - Plan Toxic metabolic encephalopathy due to E. coli UTI/COVID 19 pneumoniaPOA Dementia Oral thrush CKD stage II Hypokalemia Hypernatremia Plan: Continue gentle hydration. Discontinue azithromycin. Will continue ceft riaxone. Discontinue steroids since patient is saturating 96 percent on room air. Change Lovenox to once a day for DVT prophylaxis. Continue nystatin. Recheck labs in a.m. Continue other medications as above
[2020-04-12] MEDS: Dextrose 5 %-0.45 % NaCl 1,000 ML IV SCH (20:55)
[2020-04-12] MEDS: Donepezil HCl 5 MG TAB PO SCH (20:55)
[2020-04-13] MEDS: Dextrose 5 %-0.45 % NaCl 1,000 ML IV SCH (02:52)
[2020-04-13] MEDS: Lorazepam 2 MG/ML VIAL SLOW IVP PRN ×2 (06:41→18:41)
[2020-04-13] MEDS: Escitalopram Oxalate 20 mg Tablet PO SCH (08:56)
[2020-04-13] MEDS: Enoxaparin Sodium 30 MG/0.3 ML SYRINGE SC SCH (08:56)
[2020-04-13] MEDS: Cholecalciferol 1,000 UNITS (25 MCG) TAB PO SCH (09:20)
[2020-04-13] MEDS: Ascorbic Acid 500 mg Chewable Tablet PO SCH (09:20)
[2020-04-13] MEDS: Nystatin 500,000 UNITS/5 ML UDCUP SSW SCH (09:20)
[2020-04-13] MEDS: Famotidine 20 MG TAB PO SCH (09:20)
[2020-04-13] MEDS: Zinc Sulfate 220 MG CAP PO SCH (09:21)
[2020-04-13] MEDS ORDERED: hydrALAZINE 20 MG/ML VIAL SLOW IVP PRN (10:10)
[2020-04-13] MEDS ORDERED: Labetalol HCl 100 MG/20 ML VIAL SLOW IVP PRN (10:13)
[2020-04-13] MEDS ORDERED: D5W-AA 4.25% with LYTES 1,000 ML BAG IV SCH (10:15)
[2020-04-13] MEDS: cefTRIAXone\\ROCEPHIN 1 GM in Sodium Chloride 0.9% 100 ML IVPB SCH (14:10)
[2020-04-13] MEDS: D5W-AA 4.25% with LYTES 1,000 ML IV SCH (15:59)
--- NOTE | 2020-04-13 18:51 | PDOC.HOSPP ---
- Subjective Encounter Date: 04/13/20 Encounter Time: 14:00 non-verbal Subjective: Patient seen and examined for encephalopathy. Remains confused. Poor appetite. - Objective Vital Signs & Weight: Vital Signs (12 hours) Temp Pulse Resp BP Pulse Ox 04/13/20 08:06 97.5 F L 98 20 151/55 H 94 L 04/13/20 08:00 94 L Weight Admit Weight 131 lb 4.8 oz Weight 131 lb 4.8 oz I&O: 04/12/20 04/13/20 04/14/20 06:59 06:59 06:59 Intake Total 1250 Output Total 850 Balance 400 Result Diagrams: 04/09/20 07:41 04/09/20 07:41 Additional Labs: Accuchecks 04/13/20 04/13/20 04/13/20 15:46 11:19 04:34 POC Glucose 97 110 H 121 H 04/12/20 20:26 POC Glucose 145 H Microbiology - Entire Visit 04/06/20 11:06 Venous blood - Left Arm Blood Culture - Final NO GROWTH IN 5 DAYS 04/06/20 11:06 Venous blood - Right Hand Blood Culture - Final NO GROWTH IN 5 DAYS 04/06/20 11:25 Urine Straight Catheter Urine Culture - Final Escherichia coli Hospitalist ROS - Review of Systems ROS unobtainable: due to mental status - Medication Medications: Active Medications Generic Name Dose Route Start Last Admin Trade Name Freq PRN Reason Stop Dose Admin Acetaminophen 650 mg 04/06/20 13:15 04/08/20 22:00 Acetaminophen 650 Mg Suppository RI 650 mg Q4H PRN Administration Headache/Fever/Mild Pain (1-3) Ascorbic Acid 1,000 mg 04/09/20 09:00 04/13/20 09:20 Ascorbic Acid 500 Mg Chewable Tablet PO Not Given DAILY [facility] Cholecalciferol 2,000 units 04/09/20 09:00 04/13/20 09:20 Cholecalciferol 1,000 Units (25 Mcg) Tab PO Not Given DAILY [facility] Donepezil HCl 5 mg 04/07/20 21:00 04/12/20 20:55 Donepezil Hcl 5 Mg Tab PO 5 mg HS [facility] Administration Enoxaparin Sodium 30 mg 04/13/20 09:00 04/13/20 08:56 Enoxaparin Sodium 30 Mg/0.3 Ml Syringe SC 30 mg 0900 [facility] Administration Escitalopram Oxalate 20 mg 04/08/20 09:00 04/13/20 08:56 Escitalopram Oxalate 20 Mg Tablet PO 20 mg DAILY [facility] Administration Famotidine 20 mg 04/07/20 21:00 04/13/20 09:20 Famotidine 20 Mg Tab PO Not Given BID [facility] Ceftriaxone Sodium 1 gm/ 100 mls @ 200 mls/hr 04/11/20 16:00 04/13/20 14:10 Sodium Chloride IVPB 100 mls 1600 [place] Administration Amino Acids/Electrolytes/Dextrose 1,000 mls @ 83.33 mls/hr 04/13/20 10:45 04/13/20 15:59 Clinimix E 4.25/5 IV 1,000 mls INF [facility] Administration Lorazepam 0.25 mg 04/13/20 10:04 04/13/20 18:41 Lorazepam 2 Mg/Ml Vial SLOW IVP 0.25 mg Q6H PRN Administration Anxiety/Agitation Polyethylene Glycol 17 gm 04/07/20 09:51 04/09/20 21:04 Polyethylene Glycol 3350 17 Gm Packet PO 17 gm DAILYPRN PRN Administration Constipation Zinc Sulfate 220 mg 04/09/20 09:00 04/13/20 09:21 Zinc Sulfate 220 Mg Cap PO Not Given DAILY [facility] - Exam General Appearance: ill appearing Heart: RRR, no gallops Respiratory: no wheezes, no ronchi Gastrointestinal: soft, non-distended Extremities: no cyanosis Neurological - other findings: Neuro/psychexam limited due to current mental condition Hosp A/P - Plan DVT proph w/SCDs Consults: Palliative Care Severe Sepsis/Toxic metabolic encephalopathy due to E. coli UTI/COVID 19 pneumonia - POA Dementia Oral thrush CKD stage II Hypokalemia Hypernatremia Plan: 04/13 Continue IV ceftriaxone for UTI. Start PPN due to very poor appetite. Discontinue clonidine patch and Pepcid recheck labs in a.m. Continue supportive care. Plan discussed with the DPOA over the phone.. Continue Lexapro. A.m. la bs 1/2 Continue gentle hydration. Discontinue azithromycin. Will continue ceftriaxone. Discontinue steroids since patient is saturating 96 percent on room air. Change Lovenox to once a day for DVT prophylaxis. Continue nystatin. Recheck labs in a.m. Continue other medications as above
[2020-04-13] MEDS: Donepezil HCl 5 MG TAB PO SCH (19:19)
[2020-04-14] MEDS: D5W-AA 4.25% with LYTES 1,000 ML IV SCH ×2 (02:41→17:05)
[2020-04-14] MEDS: Lorazepam 2 MG/ML VIAL SLOW IVP PRN (04:20)
--- NOTE | 2020-04-14 09:15 | PQF ---
CLINICAL DOCUMENTATION CLARIFICATION FORM: Dear Dr. Stoddard Date: 04/14/2020 Please exercise your independent, professional judgment in responding to the clarification form. Clinical indicators are provided on the bottom of this form for your review. Please check appropriate box(s): [ ] Sepsis due to (please specify): [ ] COVID-19 virus [ ] UTI [ ] Severe Sepsis with associated acute organ dysfunction: Acute toxic metabolic encephalopathy [ ] SIRS due to non-infectious process (please specify): [ ] Dehydration [ ] Other: [ ] Localized infection without sepsis [ ] Other diagnosis [ ] Unable to determine In addition, please specify: Present on Admission (POA): [ ] Yes [ ] No [ ] Unable to determine For continuity of documentation, please document condition throughout progress notes and discharge summary. Thank You. CLINICAL INDICATORS - SIGNS / SYMPTOMS / LABS / RESULTS AND LOCATION IN EMR *ED 04/06: Vital Signs: Temp (max) 102.3 (rectal) Pulse 77-102 RR 13-29 BP 95/79 142/88 *H&P 04/06 ([facility]): * Encephalopathy in the context of urinary tract infection in a patient with a baseline dementia. * Dehydration, fairly significant *LAB ([facility]): WBC Neutrophils % Lactic Acid 04/06 8.0 84.4 1.3 04/07 9.2 89.2 04/08 5.9 78.8 04/09 4.2 77.8 *PN 04/08 ([facility]): Patient still confused this morning Still hypoxia but seems to be better 94% in the room air had a low-grade temp last evening. *PN 1/2 ([facility]): Toxic metabolic encephalopathy due to E. coli UTI/COVID 19 pneumonia-POA RISK FACTORS / RESULTS AND LOCATION IN EMR *H&P 04/06 ([facility]): * History of dementia in a Memory Care Unit * Texted positive for COVID at the facility 5 days ago . * UTI * Dehydration, fairly significant TREATMENTS / RESULTS AND LOCATION IN EMR *ED 04/06: Ceftriaxone IV, NS 1L IV *H&P 04/06 ([facility]): IV hydration, continuing the Rocephin and following the urine culture as well as blood cultures. Repeating the COVID test *PN1/2 ([facility]): Continue gentle hydration. Discontinue azithromycin. Will continue ceftriaxone. *LAB ([facility]): Lactic Acid 04/06; CBC Daily 04/06 04/09 *Microbiology 04/06 ([facility]): Blood Culture x2, Urine Culture Thank you, Caitlin CDS/[employer] Supervisor Signature: Caitlin Harkins RN, CDS Phone #: [phone] [email or web address] This is a permanent part of the Medical Record [facility]
[2020-04-14] MEDS: Cholecalciferol 1,000 UNITS (25 MCG) TAB PO SCH (09:21)
[2020-04-14] MEDS: Enoxaparin Sodium 30 MG/0.3 ML SYRINGE SC SCH (09:21)
[2020-04-14] MEDS: Ascorbic Acid 500 mg Chewable Tablet PO SCH (09:21)
[2020-04-14] MEDS: Zinc Sulfate 220 MG CAP PO SCH (09:21)
[2020-04-14] MEDS: Escitalopram Oxalate 20 mg Tablet PO SCH (09:22)
[2020-04-14] MEDS: cefTRIAXone\\ROCEPHIN 1 GM in Sodium Chloride 0.9% 100 ML IVPB SCH (15:35)
[2020-04-14] MEDS: Donepezil HCl 5 MG TAB PO SCH (19:32)
--- NOTE | 2020-04-14 23:23 | PDOC.HOSPP ---
- Subjective Encounter Date: 04/14/20 Encounter Time: 14:30 non-verbal Subjective: Patient seen and examined for encephalopathy. No overnight events. Remains confused - Objective Vital Signs & Weight: Vital Signs (12 hours) Temp Pulse Resp BP Pulse Ox 04/14/20 20:00 99 04/14/20 19:45 98.3 F 91 18 155/93 H 99 04/14/20 12:58 98.4 F 83 18 128/80 98 Weight Admit Weight 131 lb 4.8 oz Weight 131 lb 4.8 oz I&O: 04/13/20 04/14/20 04/15/20 06:59 06:59 06:59 Intake Total 9501 757 6146 Output Total 062 535 4056 Balance 400 149 -34 Result Diagrams: 04/09/20 07:41 04/09/20 07:41 Additional Labs: Accuchecks 04/14/20 04/14/20 04/14/20 19:36 16:44 11:31 POC Glucose 125 H 101 H 136 H 04/14/20 04/11/20 05:41 16:19 POC Glucose 126 H 145 H Hospitalist ROS - Review of Systems ROS unobtainable: due to mental status - Medication Medications: Active Medications Generic Name Dose Route Start Last Admin Trade Name Freq PRN Reason Stop Dose Admin Acetaminophen 650 mg 04/06/20 13:15 04/08/20 22:00 Acetaminophen 650 Mg Suppository [place] 650 mg Q4H PRN Administration Headache/Fever/Mild Pain (1-3) Ascorbic Acid 1,000 mg 04/09/20 09:00 04/14/20 09:21 Ascorbic Acid 500 Mg Chewable Tablet PO Not Given DAILY [facility] Cholecalciferol 2,000 units 04/09/20 09:00 04/14/20 09:21 Cholecalciferol 1,000 Units (25 Mcg) Tab PO Not Given DAILY [facility] Donepezil HCl 5 mg 04/07/20 21:00 04/14/20 19:32 Donepezil Hcl 5 Mg Tab PO 5 mg HS [facility] Administration Enoxaparin Sodium 30 mg 04/13/20 09:00 04/14/20 09:21 Enoxaparin Sodium 30 Mg/0.3 Ml Syringe SC 30 mg 0900 [facility] Administration Escitalopram Oxalate 20 mg 04/08/20 09:00 01/04/21 09:22 Escitalopram Oxalate 20 Mg Tablet PO 20 mg DAILY [facility] Administration Ceftriaxone Sodium 1 gm/ 100 mls @ 200 mls/hr 04/11/20 16:00 04/14/20 15:35 Sodium Chloride IVPB 100 mls 1600 [facility] Administration Amino Acids/Electrolytes/Dextrose 1,000 mls @ 83.33 mls/hr 04/13/20 10:45 04/14/20 17:05 Clinimix E 4.25/5 IV 1,000 mls INF [facility] Administration Lorazepam 0.25 mg 04/13/20 10:04 04/14/20 04:20 Lorazepam 2 Mg/Ml Vial SLOW IVP 0.25 mg Q6H PRN Administration Anxiety/Agitation Pantoprazole Sodium 40 mg 04/14/20 09:00 04/14/20 09:21 Pantoprazole 40 Mg Tab PO Not Given DAILY [facility] Polyethylene Glycol 17 gm 04/07/20 09:51 04/09/20 21:04 Polyethylene Glycol 3350 17 Gm Packet PO 17 gm DAILYPRN PRN Administration Constipation Zinc Sulfate 220 mg 04/09/20 09:00 04/14/20 09:21 Zinc Sulfate 220 Mg Cap PO Not Given DAILY [facility] - Exam General Appearance: ill appearing Neck: supple, no JVD Heart: no gallops, no rubs Respiratory: rales, rhonchi Gastrointestinal: soft, non-tender, normal bowel sounds Extremities: no cyanosis Hosp A/P - Plan DVT proph w/SCDs Severe Sepsis/Toxic metabolic encephalopathy due to E. coli UTI/COVID 19 pneumonia Dementia Oral thrush CKD stage II Hypokalemia Hypernatremia Plan: 04/14 Continue PPN. Continue IV ceftriaxone. Patient has very poor appetite. Palliative care input appreciated. No lab work available. Continue other medications as above. Family updated by palliative care team. 04/13 Continue IV ceftriaxone for UTI. Start PPN due to very poor appetite. Discontinue clonidine patch and Pepcid recheck labs in a.m. Continue supportive care. Plan discussed with the DPOA over the phone.. Continue Lexapro. A.m. labs 1/2 Continue gentle hydration. Discontinue azithromycin. Will continue ceftriaxo ne. Discontinue steroids since patient is saturating 96 percent on room air. Change Lovenox to once a day for DVT prophylaxis. Continue nystatin. Recheck labs in a.m. Continue other medications as above
[2020-04-15] MEDS: D5W-AA 4.25% with LYTES 1,000 ML IV SCH ×2 (04:02→17:20)
[2020-04-15] MEDS: Enoxaparin Sodium 30 MG/0.3 ML SYRINGE SC SCH (08:09)
[2020-04-15] MEDS: Zinc Sulfate 220 MG CAP PO SCH (08:10)
[2020-04-15] MEDS: Cholecalciferol 1,000 UNITS (25 MCG) TAB PO SCH (08:10)
[2020-04-15] MEDS: Escitalopram Oxalate 20 mg Tablet PO SCH (08:10)
[2020-04-15] MEDS: Ascorbic Acid 500 mg Chewable Tablet PO SCH (08:11)
[2020-04-15 10:26] LABS: ALT (SGPT) 39 U/L (8-55); AST (SGOT) 45 U/L (5-34); Albumin 3.1 g/dL (3.4-4.8); Alkaline Phosphatase 69 U/L (40-110); Anion Gap 14 mmol/L (10-20); BUN (Urea Nitrogen) 24 mg/dL (9.8-20.1); Bilirubin, Total 0.9 mg/dL (0.2-1.2); Calc. Creatinine Clearance 59 mL/min (70-130); Calcium 8.3 mg/dL (7.8-10.44); Carbon Dioxide 24 mmol/L (23-31); Chloride 106 mmol/L (98-107); Globulin 2.8 g/dL (2.4-3.5); Glucose 130 mg/dL (83-110); Potassium 3.1 mmol/L (3.5-5.1); Protein, Total 5.9 g/dL (6.0-8.3); Sodium 141 mmol/L (136-145)
[2020-04-15] MEDS ORDERED: Potassium Chloride 40 MEQ in Premix Bag 1 BAG IVPB SCH (13:00)
[2020-04-15] MEDS ORDERED: Electrolyte Replacement Protocol 1 EACH FS SCH (13:00)
[2020-04-15] MEDS: Potassium Chloride 20 MEQ in Premix Bag 1 BAG IVPB SCH ×2 (13:40→15:34)
[2020-04-15] MEDS: cefTRIAXone\\ROCEPHIN 1 GM in Sodium Chloride 0.9% 100 ML IVPB SCH (16:34)
--- NOTE | 2020-04-15 17:35 | PDOC.FMACP ---
Advance Care Planning - Problem (1) Palliative care encounter Status: Acute Code(s): Z51.5 - ENCOUNTER FOR PALLIATIVE CARE (2) COVID-19 Status: Acute Code(s): U07.1 - COVID-19 (3) Encephalopathy Status: Acute Code(s): G93.40 - ENCEPHALOPATHY, UNSPECIFIED (4) UTI (urinary tract infection) Status: Acute Qualifiers: Urinary tract infection type: acute cystitis Hematuria presence: without hematuria Qualified Code(s): N30.00 - Acute cystitis without hematuria (5) Dementia Status: Chronic Code(s): F03.90 - UNSPECIFIED DEMENTIA WITHOUT BEHAVIORAL DISTURBANCE Qualifiers: Dementia type: unspecified type - Note Participants: family, palliative care Summary: Palliative care has addressed Advanced Care Planning with patient son Sheldon and daughter in law. The diagnosis, prognosis and goals of care were discussed. Appropriate forms and documentation to accomplish the goals of care were discussed. All questions were answered. Confirmed DNAR status. Patient not eating, decline. Son is desiring to seek hospice care to manage symptoms related to his mothers condition. Requesting evaluation with [facility] hospice for consideration to manage agitation. Communicated with Dr Stoddard Please also refer to Aranza Oates RNhealthcare applications analyst notes in note section. Time Spent (mins): 20
--- NOTE | 2020-04-15 23:27 | PDOC.HOSPP ---
- Subjective Encounter Date: 04/15/20 Encounter Time: 13:30 Subjective: Patient seen and examined for encephalopathy. Remains confused. Poor appetite. - Objective Vital Signs & Weight: Vital Signs (12 hours) Temp Pulse Resp BP Pulse Ox 04/15/20 20:00 98.6 F 86 18 153/81 H 99 Weight Admit Weight 131 lb 4.8 oz Weight 131 lb 4.8 oz I&O: 04/14/20 04/15/20 04/16/20 06:59 06:59 06:59 Intake Total 999 2015 Output Total 850 1950 Balance 149 66 Result Diagrams: 04/09/20 07:41 04/15/20 09:26 Additional Labs: Accuchecks 04/15/20 04/15/20 04/15/20 20:19 11:44 04:57 POC Glucose 133 H 134 H 134 H Hospitalist ROS - Review of Systems ROS unobtainable: due to mental status - Medication Medications: Active Medications Generic Name Dose Route Start Last Admin Trade Name Freq PRN Reason Stop Dose Admin Acetaminophen 650 mg 04/06/20 13:15 04/08/20 22:00 Acetaminophen 650 Mg Suppository RI 650 mg Q4H PRN Administration Headache/Fever/Mild Pain (1-3) Ascorbic Acid 1,000 mg 04/09/20 09:00 04/15/20 08:11 Ascorbic Acid 500 Mg Chewable Tablet PO Not Given DAILY [facility] Cholecalciferol 2,000 units 04/09/20 09:00 04/15/20 08:10 Cholecalciferol 1,000 Units (25 Mcg) Tab PO Not Given DAILY [facility] Donepezil HCl 5 mg 04/07/20 21:00 04/14/20 19:32 Donepezil Hcl 5 Mg Tab PO 5 mg HS [facility] Administration Enoxaparin Sodium 30 mg 04/13/20 09:00 04/15/20 08:09 Enoxaparin Sodium 30 Mg/0.3 Ml Syringe SC 30 mg 0900 [facility] Administration Escitalopram Oxalate 20 mg 04/08/20 09:00 04/15/20 08:10 Escitalopram Oxalate 20 Mg Tablet PO Not Given DAILY [facility] Ceftriaxone Sodium 1 gm/ 100 mls @ 200 mls/hr 04/11/20 16:00 04/15/20 16:34 Sodium Chloride IVPB 100 mls 1600 [facility] Administration Amino Acids/Electrolytes/Dextrose 1,000 mls @ 83.33 mls/hr 04/13/20 10:45 04/15/20 17:20 Clinimix E 4.25/5 IV 1,000 mls INF [facility] Administration Lorazepam 0.25 mg 04/13/20 10:04 04/14/20 04:20 Lorazepam 2 Mg/Ml Vial SLOW IVP 0.25 mg Q6H PRN Administration Anxiety/Agitation Pantoprazole Sodium 40 mg 04/14/20 09:00 04/15/20 08:10 Pantoprazole 40 Mg Tab PO Not Given DAILY [facility] Polyethylene Glycol 17 gm 04/07/20 09:51 04/09/20 21:04 Polyethylene Glycol 3350 17 Gm Packet PO 17 gm DAILYPRN PRN Administration Constipation Zinc Sulfate 220 mg 04/09/20 09:00 04/15/20 08:10 Zinc Sulfate 220 Mg Cap PO Not Given DAILY [facility] - Exam General Appearance: ill appearing Neck: supple, no JVD Respiratory: no wheezes, rhonchi Gastrointestinal: soft, no guarding, no rigidity Extremities: no cyanosis Neurological - other findings: Neuro/psychcannot assess due to current mentation Hosp A/P - Plan DVT proph w/SCDs Severe Sepsis/Toxic metabolic encephalopathy due to E. coli UTI/COVID 19 pneumonia Dementia Oral thrush CKD stage II Hypokalemia Hypernatremia Plan: Palliative care input appreciated. Lab work reviewed. Replace potassium. Continue sliding scale. Continue other medications as above. Plan discussed extensively with the son. Due to progressive decline, son agreed with inpatient hospice. We will consult case management associate for assistance. 04/14 Continue PPN. Continue IV ceftriaxone. Patient has very poor appetite. Palliative care input appreciated. No lab work available. Continue other medications as above. Family updated by palliative care team. 04/13 Continue IV ceftriaxone for UTI. Start PPN due to very poor appetite. Discontinue clonidine patch and Pepcid recheck labs in a.m. Continue supportive care. Plan discussed with the DPOA over the phone.. Continue Lexapro. A.m. labs 1/2 Continue gentle hydration. Discontinue azithromycin. Will continue ceftriaxone. Discontinue steroids since patient is saturating 96 percent on room air. Change Lovenox to once a day for DVT prophylaxis. Continue nystatin. Recheck labs in a.m. Continue other medications as above
[2020-04-15] MEDS: Donepezil HCl 5 MG TAB PO SCH (23:52)
[2020-04-16] MEDS: Acetaminophen 650 MG Suppository PR PRN (01:34)
[2020-04-16] MEDS: D5W-AA 4.25% with LYTES 1,000 ML IV SCH (05:49)
[2020-04-16] MEDS: Enoxaparin Sodium 30 MG/0.3 ML SYRINGE SC SCH (08:01)
[2020-04-16] MEDS: Ascorbic Acid 500 mg Chewable Tablet PO SCH (08:03)
[2020-04-16] MEDS: Cholecalciferol 1,000 UNITS (25 MCG) TAB PO SCH (08:03)
[2020-04-16] MEDS: Escitalopram Oxalate 20 mg Tablet PO SCH (08:04)
[2020-04-16] MEDS: Zinc Sulfate 220 MG CAP PO SCH (08:04)
[2020-04-16] MEDS: Donepezil HCl 5 MG TAB PO SCH (19:58)
--- NOTE | 2020-04-16 20:37 | PDOC.HOSPP ---
- Subjective Encounter Date: 04/16/20 Encounter Time: 15:00 non-verbal Subjective: Patient seen and examined for respiratory failure due to COVID-19 pneumonia. No new overnight events. - Objective Vital Signs & Weight: Vital Signs (12 hours) Temp Pulse Resp BP Pulse Ox 04/16/20 20:00 98.1 F 73 20 152/93 H 98 Weight Admit Weight 131 lb 4.8 oz Weight 131 lb 4.8 oz I&O: 04/15/20 04/16/20 04/17/20 06:59 06:59 06:59 Intake Total 2016 Output Total 1950 Balance 66 Result Diagrams: 04/09/20 07:41 04/15/20 09:26 Additional Labs: Accuchecks 04/16/20 04/16/20 04/15/20 16:27 05:02 16:16 POC Glucose 83 116 H 119 H Hospitalist ROS - Review of Systems ROS unobtainable: due to mental status - Medication Medications: Active Medications Generic Name Dose Route Start Last Admin Trade Name Freq PRN Reason Stop Dose Admin Acetaminophen 650 mg 04/06/20 13:15 04/16/20 01:34 Acetaminophen 650 Mg Suppository LA 650 mg Q4H PRN Administration Headache/Fever/Mild Pain (1-3) Ascorbic Acid 1,000 mg 04/09/20 09:00 04/16/20 08:03 Ascorbic Acid 500 Mg Chewable Tablet PO Not Given DAILY [place] Cholecalciferol 2,000 units 04/09/20 09:00 04/16/20 08:03 Cholecalciferol 1,000 Units (25 Mcg) Tab PO Not Given DAILY [place] Donepezil HCl 5 mg 04/07/20 21:00 04/16/20 19:58 Donepezil Hcl 5 Mg Tab PO 5 mg HS [place] Administration Enoxaparin Sodium 30 mg 04/13/20 09:00 04/16/20 08:01 Enoxaparin Sodium 30 Mg/0.3 Ml Syringe SC 30 mg 09 [place] Administration Escitalopram Oxalate 20 mg 04/08/20 09:00 04/16/20 08:04 Escitalopram Oxalate 20 Mg Tablet PO Not Given DAILY [place] Lorazepam 0.25 mg 04/13/20 10:04 04/14/20 04:20 Lorazepam 2 Mg/Ml Vial SLOW IVP 0.25 mg Q6H PRN Administration Anxiety/Agitation Pantoprazole Sodium 40 mg 04/14/20 09:00 04/16/20 08:04 Pantoprazole 40 Mg Tab PO Not Given DAILY [place] Polyethylene Glycol 17 gm 04/07/20 09:51 04/09/20 21:04 Polyethylene Glycol 3350 17 Gm Packet PO 17 gm DAILYPRN PRN Administration Constipation Sodium Chloride 10 ml 04/15/20 21:00 04/16/20 19:58 Flush - Normal Saline 10 Ml Syringe IVF 10 ml Q12HR [place] Administration Zinc Sulfate 220 mg 04/09/20 09:00 04/16/20 08:04 Zinc Sulfate 220 Mg Cap PO Not Given DAILY [place] - Exam General Appearance: ill appearing Heart: RRR, no gallops, no rubs Respiratory: no wheezes, rales, rhonchi Gastrointestinal: soft, no guarding, no rigidity Extremities: no cyanosis, no clubbing Neurological: no new deficit Neurological - other findings: Neuro/psychexam limited due to current mentation Hosp A/P - Plan DVT proph w/SCDs Severe Sepsis/Toxic metabolic encephalopathy due to E. coli UTI/COVID 19 pn eumonia Dementia Oral thrush CKD stage II Hypokalemia Hypernatremia Plan: PPN will be discontinued per family's request. Await hospice set up. Plan discussed with the assistant case manager and palliative care. Discontinue daily labs. Will discontinue DVT prophylaxis. Continue supportive care. Continue isolation 04/15 Palliative care input appreciated. Lab work reviewed. Replace potassium. Continue sliding scale. Continue other medications as above. Plan discussed extensively with the son. Due to progressive decline, son agreed with inpatient hospice. We will consult assistant case manager for assistance. 04/14 Continue PPN. Continue IV ceftriaxone. Patient has very poor appetite. Palliative care input appreciated. No lab work available. Continue other medications as above. Family updated by palliative care team. 04/13 Continue IV ceftriaxone for UTI. Start PPN due to very poor appetite. Discontinue clonidine patch and Pepcid recheck labs in a.m. Continue supportive care. Plan discussed with the DPOA over the phone.. Continue Lexapro. A.m. labs 1/2 Continue gentle hydration. Discontinue azithromycin. Will continue ceftriaxone. Discontinue steroids since patient is saturating 96 percent on room air. Change Lovenox to once a day for DVT prophylaxis. Continue nystatin. Recheck labs in a.m. Continue other medications as above
[2020-04-17 08:44] VITALS: BP 122/69; TEMP 98.6
--- NOTE | 2020-04-17 09:07 | PQF ---
CLINICAL DOCUMENTATION CLARIFICATION FORM: Dear Dr. Stoddard Date: 04/17/2020 Please exercise your independent, professional judgment in responding to the clarification form. Clinical indicators are provided on the bottom of this form for your review. Please check appropriate box(s): [ x ] Acute Respiratory Failure with Hypoxia [ ] Acute Respiratory Failure with Hypercapnia [ ] Other diagnosis [ ] Unable to determine In addition, please specify: Present on Admission (POA): [ ] Yes [ x ] No [ ] Unable to determine For continuity of documentation, please document condition throughout progress notes and discharge summary. Thank You. CLINICAL INDICATORS - SIGNS / SYMPTOMS / LABS / RESULTS AND LOCATION IN EMR *H&P 04/06 ([facility]): * Positive for COVID at that facility 5 days ago * Physical Examination: * Vital Signs: . Pulse 77, respirations 24, sat 96% on room air * Lungs: Clear to auscultation. No audible wheezing, rhonchi, rales. * No indication for medications for COVID given that the patient is on room air without significant sign of pneumonia on chest x-ray. *Adult Assessment Section 1 of 3 04/06 at 1802 * Respiratory Assessment * Pulse oximetry 98 * Oxygen Delivery Method Room Air * Effort Non-Labored *PN 04/10 ([facility]): * She is hypoxic in room air * Decadron may worsen her metabolic encephalopathy however with hypoxia will treat her empirically. *PN 04/11 ([facility]): She is tachycardic this morning and sats are 91% in the room air. It appears she is not keeping her nasal cannula. *PN 04/12 ([facility]): Discontinue steroids since patient is saturating 96 percent on room air. *Adult Assessment Section 1 of 3 04/16 at 0800: * Respiratory Assessment * Respiratory Symptoms SOB with Exertion * Pulse oximetry 94 * Oxygen Delivery Method Room Air * Effort Normal Non-Labored *PN 04/16 ([facility]): * Patient seen and examined for respiratory failure due to COVID-19 pneumonia. * Exam Respiratory: no wheezes, rales, rhonchi * 04/15 Progressive decline RISK FACTORS / RESULTS AND LOCATION IN EMR *H&P 04/06 ([facility]): Reported COVID positive test a week ago *PN 04/10 ([facility]): . Covid pneumonia *PN 04/16 ([facility]): Progressive decline TREATMENTS / RESULTS AND LOCATION IN EMR *Reports (EMR): Chest X-Ray 04/06, Chest/Thorax CTA 04/10 *Medications (EMR): Dexamethasone IV 04/08-04/12 *Vital Signs (EMR): 04/16 at 0000 and 0224 Nasal Cannula Thank you, Caitlin CDS/Culinary Arts Teacher Signature: Caitlin Harkins RN, CDS Phone #: [phone] [email or web address] This is a permanent part of the Medical Record [facility]
[2020-04-17] MEDS: Ascorbic Acid 500 mg Chewable Tablet PO SCH (10:11)
[2020-04-17] MEDS: Escitalopram Oxalate 20 mg Tablet PO SCH (10:12)
[2020-04-17] MEDS: Cholecalciferol 1,000 UNITS (25 MCG) TAB PO SCH (10:12)
[2020-04-17] MEDS: Zinc Sulfate 220 MG CAP PO SCH (10:13)
--- NOTE | 2020-04-17 19:57 | PDOC.DS.DS ---
Provider - Provider Date of Admission: 04/06/20 17:35 Date of Discharge: 04/17/20 Admitting Provider: Henrietta Jones MD Consultations: None Primary Care Physician: Shyanne Yates MD Course - Hospital Course Hospital Course: Patient is a 84-year-old female with dementia residing in a [facility]p was brought into the hospital with altered mentation. She was diagnosed with COVID- 19 approximately 5 days prior to admission. Please refer to the history and physical for further details. The patient was admitted to the hospital with a diagnosis of encephalopathy due to COVID-19 pneumonia. She also had intermittent acute respiratory failure r equiring supplemental oxygen. Chest x-ray on admission showed findings consistent with pneumonia. CT angiogram of the chest showed patchy bilateral interstitial, alveolar and groundglass opacity changes more marked in the right lung consistent with COVID-19 pneumonia. She was also diagnosed with E. coli UTI. She has completed antibiotics. She was also started on dexamethasone. Oral thrush was treated with nystatin. Due to progressive decline family decided on hospice at the nursing facility. Final diagnosis: Severe Sepsis/Toxic metabolic encephalopathy due to E. coli UTI/COVID 19 pneumonia Acute hypoxic respiratory failure due to COVID-19 pneumonia Dementia Oral thrush CKD stage II Hypokalemia Hypernatremia Time coordinating the discharge of this patient was 33 minutes Resuscitation Status: 04/06/20 15:16 Resuscitation Status Routine Resuscitation Status: DNAR: NO Resuscitation Discussed with: Family called back and spoke with Rupa in the ER - stating no Additional comments: cpr/intubation and this is consistent with her living will. The status is updated here. - Labs Lab Results: 04/09/20 07:41 04/15/20 09:26 Microbiology - Entire Visit 04/06/20 11:06 Venous blood - Left Arm Blood Culture - Final NO GROWTH IN 5 DAYS 04/06/20 11:06 Venous blood - Right Hand Blood Culture - Final NO GROWTH IN 5 DAYS 04/06/20 11:25 Urine Straight Catheter Urine Culture - Final Escherichia coli - Physical Exam Vitals: Vital Signs (12 hours) Temp Pulse Resp BP Pulse Ox 04/17/20 08:00 98.6 F 77 20 122/69 96 Weight Admit Weight 131 lb 4.8 oz Weight 131 lb 4.8 oz Physical Exam: The patient was seen and examined on the day of discharge. Plan - Discharge Medications Home Medications: Medication Instructions Recorded Confirmed Type Acetaminophen [Tylenol] 650 mg PO Q6H PRN 04/06/20 04/06/20 History Dextromethorphan Polistirex 10 ml PO BID 04/06/20 04/06/20 History [Delsym] Donepezil HCl [Aricept] 5 mg PO HS 04/06/20 04/06/20 History Escitalopram Oxalate 20 mg PO DAILY 04/06/20 04/06/20 History Famotidine 20 mg PO BID PRN 04/06/20 04/06/20 History Fluocinolone Acetonide 0 gm TOP Q6H PRN 04/06/20 04/06/20 History [Fluocinolone 0.01% Cream] Polyethylene Glycol 3350 [Miralax] 17 gm PO DAILY PRN 04/06/20 04/06/20 History Terbinafine 1% Cream [LamISIL 1% 1 applic TOP HS 04/06/20 04/06/20 History Cream] Allergies: azithromycin Allergy (Verified 04/06/20 14:49) erythromycin base Allergy (Verified 04/06/20 14:49) - Follow up Plan Referrals: Shyanne Yates MD [Primary Care Provider] - Disposition: [facility] Quality - Care Measures CORE MEASURES:: N/A
== END 2020-04-17 17:19 | disposition hospice, inpatient (51) | DRG 871 ==
LOC: ERS 10:02 → T4-A 17:35
PROVIDERS: ADMIT Family Medicine; ATTEND Internal Medicine
PROC: 8E0ZXY6 Isolation (ICD-10-PCS; principal; 2020-04-06)
PROC: 0T9B70Z Drainage of Bladder with Drainage Device, Via Natural or Artificial Opening (ICD-10-PCS; 2020-04-06)
DX: A41.51 Sepsis due to Escherichia coli [E. coli] (principal); U07.1 COVID-19; J12.82 Pneumonia due to coronavirus disease 2019; J96.01 Acute respiratory failure with hypoxia; G92 Toxic encephalopathy; B37.0 Candidal stomatitis; E87.0 Hyperosmolality and hypernatremia; N30.00 Acute cystitis without hematuria; A41.89 Other specified sepsis; Z66 Do not resuscitate; E87.6 Hypokalemia; R65.20 Severe sepsis without septic shock; Z51.5 Encounter for palliative care; F03.90 Unspecified dementia, unspecified severity, without behavioral disturbance, psychotic disturbance, mood disturbance, and anxiety; N18.2 Chronic kidney disease, stage 2 (mild); E86.0 Dehydration; E11.22 Type 2 diabetes mellitus with diabetic chronic kidney disease; I12.9 Hypertensive chronic kidney disease with stage 1 through stage 4 chronic kidney disease, or unspecified chronic kidney disease; E78.5 Hyperlipidemia, unspecified; Z88.1 Allergy status to other antibiotic agents; Z79.899 Other long term (current) drug therapy; Z78.1 Physical restraint status
CPT/HCPCS: 36415; 36416; 51701; 70450; 71045; 71275; 80048; 80053; 81003; 81015; 82728; 83605; 83735; 84443; 84484; 85025; 85379; 86140; 87040; 87077; 87086; 87186; 87635; 93005; 94760; 96365; 96372; J0456; J0696; J1100; J1630; J1650; J2060; J3480; J3490; J7050; Q9967; S0028; U0003